=== PATIENT | female | born 1970 | race American Indian/Alaskan Native ===

== ENCOUNTER 2018-09-09 08:06 | Outpatient (CLI) | payer OTHER ==
--- NOTE | 2018-09-09 12:16 | Mammography Report ---
Bilateral mammogram: No previous studies available. CAD study utilized. Findings: Heterogeneous breast parenchyma bilaterally. Focal asymmetry or anterior left breast and upper anterior right breast. No microcalcification. Normal axilla. Impression: Focal asymmetry right and left breast. Recommend comparison with previous studies. If previous studies are unavailable spot compression and sonographic examination recommended. BI-RADS CATEGORY: 0 = Needs additional imaging evaluation ACR BI-RADS MAMMOGRAPHIC CODES: 0 = Needs additional imaging evaluation; 1 = Negative; 2 = Benign; 3 = Probably benign; 4 = Suspicious; 5 = Malignant; 6 = Known biopsy-proven malignancy COMMENT: 1. Dense breast tissue, i.e., adenosis, fibrocystic changes, etc., may obscure an underlying neoplasm. 2. Approximately 10% of cancers are not detected with mammography. 3. A negative mammography report should not delay biopsy if a clinically suspicious mass is present. COMMENT: Patient follow-up letters are generated in [facility]. No
== END 2018-09-09 08:07 | disposition home or self-care (01) ==
LOC: SPVWC 08:06
PROVIDERS: ATTEND Obstetrics & Gynecology
DX: Z12.31 Encounter for screening mammogram for malignant neoplasm of breast (principal)
CPT/HCPCS: 77067

== ENCOUNTER 2018-10-10 08:14 | Outpatient (CLI) | payer OTHER ==
--- NOTE | 2018-10-10 13:15 | Ultrasound Report ---
BILATERAL DIGITAL DIAGNOSTIC MAMMOGRAM and LEFT BREAST ULTRASOUND: 10/10/18 08:14:00 CLINICAL: Recalled for asymmetry. COMPARISON:09/09/18 screening FINDINGS: Additional mammographic views of the right breast were performed and are negative.A low-density left upper outer asymmetry with poorly defined margins persists on spot views. A left lateral view is negative. Ultrasound of the upper outer left breast was performed. A bilobed benign cyst at 2 o'clock 7 cm from the nipple measures 9 x 10 x 4 mm and likely correlates with the mammographic density. An oval complex cyst versus solid mass at 2 o'clock 6 cm from the nipple measures 4 x 3 x 4 mm. IMPRESSION: Probably benign findings of the left breast. Recommend 6 month followup left mammogram and left breast ultrasound. Negative right breast. Recommend routine screening of the right breast. BI-RADS CATEGORY: 3 - - Probably Benign ACR BI-RADS MAMMOGRAPHIC CODES: 0 = Needs additional imaging evaluation; 1 = Negative; 2 = Benign; 3 = Probably benign; 4 = Suspicious; 5 = Malignant; 6 = Known biopsy-proven malignancy COMMENT: 1. Dense breast tissue, i.e., adenosis, fibrocystic changes, etc., may obscure an underlying neoplasm. 2. Approximately 10% of cancers are not detected with mammography. 3. A negative mammography report should not delay biopsy if a clinically suspicious mass is present. COMMENT: Patient follow-up letters are generated via our [employer] application.
== END 2018-10-10 08:15 | disposition home or self-care (01) ==
LOC: SPVWC 08:14
PROVIDERS: ATTEND Physician Assistant
DX: R92.8 Other abnormal and inconclusive findings on diagnostic imaging of breast (principal)
CPT/HCPCS: 77066